=== PATIENT | female | born 1990 | race African-American/Black ===

== ENCOUNTER 2019-09-18 21:47 | Emergency (ER) | payer MEDICARE, MEDICAID ==
[2019-09-19] MEDS ORDERED: NORMAL SALINE 1000 ML 1,000 ML IV ONE (00:05)
[2019-09-19] MEDS ORDERED: ONDANSETRON HCL INJ/PF 4 MG/2 ML SDV IV ONE (00:06)
[2019-09-19] MEDS ORDERED: MORPHINE SULFATE 10 MG/ML INJ IV ONE (00:06)
--- NOTE | 2019-09-19 00:21 | ER Document Report ---
Entered by YORDY HAYS SCRIBE 09/19/19 0011 Acting as scribe for:BAYRON MCCORMICK IV, MD ED General - General Chief Complaint: Headache, Worst Ever Stated Complaint: HEADACHE Time Seen by Provider: 09/18/19 23:47 Primary Care Provider: MARY DUPONT MD [Primary Care Provider] - Follow up as needed Information source: Patient Notes: This 28-year-old female presents to the emergency department complaining of a headache that has been occurring for the past week. Patient states that headache is on the left side and she has never had a headache like this. Patient denies eye pain, nausea and vomiting. Patient states that headache is worsened with talking. Patient has been taking Tylenol with no relief. DDx: cluster headache, intracranial hemorrhage, subarachnoid hemorrhage and trigeminal neuralgia. TRAVEL OUTSIDE OF THE [place] IN LAST 30 DAYS: No - Related Data Allergies/Adverse Reactions: No Known Drug Allergies Allergy (Unknown, Verified 11/13/15 15:14) soap Allergy (Uncoded 11/13/15 15:14) Past Medical History - General Information source: Patient - Social History Smoking Status: Former Smoker Cigarette use (# per day): No Chew tobacco use (# tins/day): No Frequency of alcohol use: None Drug Abuse: None Family History: Reviewed & Not Pertinent Patient has suicidal ideation: No Patient has homicidal ideation: No Renal/ Medical History: Reports: Hx Ovarian Cysts Musculoskeletal Medical History: Denies Hx Arthritis Psychiatric Medical History: Reports: Hx Attention Deficit Hyperactivity Disorder, Hx Bipolar Disorder, Hx Schizophrenia Past Surgical History: Reports: Hx Gynecologic Surgery - ovarian cysts - Immunizations Hx Diphtheria, Pertussis, Tetanus Vaccination: No Review of Systems - Review of Systems Constitutional: No symptoms reported EENT: See HPI. denies: Eye pain Cardiovascular: No symptoms reported Respiratory: No symptoms reported Gastrointestinal: See HPI. denies: Nausea, Vomiting Genitourinary: No symptoms reported Female Genitourinary: No symptoms reported Musculoskeletal: No symptoms reported Skin: No symptoms reported Hematologic/Lymphatic: No symptoms reported Neurological/Psychological: See HPI, Headaches -: Yes All other systems reviewed and negative Physical Exam - Vital signs Vitals: Temp Pulse Resp BP Pulse Ox 98.2 F 91 22 H 142/101 H 97 09/18/19 22:01 09/18/19 22:01 09/18/19 22:01 09/18/19 22:01 09/18/19 22:01 - Notes Notes: Physical Exam: General: Alert, appears well. HEENT: Normocephalic. Atraumatic. PERRL. Extraocular movements intact. Oropharynx clear. Neck: Supple. Non-tender. Respiratory: No respiratory distress. Clear and equal breath sounds bilaterally. Cardiovascular: Regular rate and rhythm. Abdominal: Normal Inspection. Non-tender. No distension. Normal Bowel Sounds. Back: No gross abnormalities. Extremities: Moves all four extremities. Upper extremities: Normal inspection. Normal ROM. Lower extremities: Normal inspection. No edema. Normal ROM. Neurological: Normal cognition. AAOx4. Normal speech. Psychological: Normal affect. Normal Mood. Skin: Warm. Dry. Normal color. Course - Re-evaluation Re-evalutation: 09/19/19 03:08 Patient was woken from sleep. Patient states that her headache is improved. Results of ED MSE discussed with patient. All questions were answered prior to discharge. Emergency signs and symptoms, reasons to return to the emergency department discussed with patient. - Vital Signs Vital signs: Temp Pulse Resp BP Pulse Ox 97.9 F 69 20 129/87 H 98 09/19/19 02:46 09/19/19 02:46 09/19/19 02:46 09/19/19 02:46 09/19/19 02:46 - Diagnostic Test Radiology reviewed: Reports reviewed Discharge - Discharge Clinical Impression: Acute headache Qualifiers: Headache type: unspecified Intractability: not intractable Qualified Code(s): R51 - Headache Condition: Good Disposition: HOME, SELF-CARE Additional Instructions: Return to the Emergency Department without delay if any worse. HOME CARE INSTRUCTIONS & INFORMATION: Thank you for choosing us for your medical needs. We hope you're satisfied with the care you received. After you leave, you must properly care for your problem and, at the same time, observe its progress. Any condition can change. Some illnesses can change rapidly over hours or days. If your condition worsens, return to the Emergency Department or see your physician promptly. ABOUT YOUR X-RAYS AND EKG'S: If you had an EKG or X-rays taken, they have been read by the Emergency Physician. The X-rays and EKG's will also be read by a Radiologist or Steel Rule Die Maker within 24 hours. If discrepancies are noted, you will be notified by telephone. Please be certain the ED has a correct telephone number & address where you can be reached. Also, realize that some fractures or abnormalities do not show up on initial X-rays. If your symptoms continue, see your physician. ABOUT YOUR LABORATORY TEST: If you had laboratory tests, the results have been reviewed by the Emergency Physician. Some test results (for example cultures) may not be available for several days. You will be contacted if any test result shows you need additional treatment. Please be certain the ED has a correct telephone number and address where you can be reached. ABOUT YOUR MEDICATIONS: You will receive instructions on how to take your medicine on the prescription label you receive. Additional information may be provided by the Pharmacy. If you have questions afterwards, call the ED for clarification or further instructions. Some prescribed medications may cause drowsiness. Do not perform tasks such as driving a car or operating machinery without consulting your Pharmacist. If you feel you need a refill of pain medication, your condition will need re-evaluation. Please do not call for a refill of any medication. ABOUT YOUR SIGNATURE: Signature of this document acknowledges to followin. Understanding that you received emergency treatment and that you may be released before al medical problems are known or treated. Please be certain the ED has a correct phone number & address where you can be reached. 2. Acknowledgement that you will arrange for follow-up care as recommended. 3. Authorization for the Emergency Physician to provide information to your follow-up Physician in order to maximize your care. AT ANY TIME, IF YOUR SYMPTOMS CHANGE SIGNIFICANTLY OR WORSEN OR YOU DEVELOP NEW SYMPTOMS, RETURN TO THE EMERGENCY DEPARTMENT IMMEDIATELY FOR RE-EVALUATION. OUR GOAL IS TO PROVIDE EXCELLENT MEDICAL CARE! WE HOPE THAT WE HAVE MET YOUR EXPECTATIONS DURING YOUR EMERGENCY DEPARTMENT VISIT AND THAT YOU FEEL YOU HAVE RECEIVED EXCELLENT CARE! Headache The physician does not feel that the headache you are experiencing has a serious underlying cause. Most headaches are due to emotional stress, with resultant muscle tension (tension headache). Occasionally, headaches are secondary to changes in the blood vessels of the scalp (vascular headache and migraine headache). Sometimes, a headache is the first symptom of another developing illness, such as a viral infection. You have no evidence of stroke, bleeding, meningitis, or other serious cause of your headache. The treatment of headaches varies with the severity and cause of the pain. Not all headaches need pain shots. In fact, there is evidence that using narco tics for headaches may make them worse in the long run. The physician will determine the therapy that's in your best interest. If you develop a fever, if the headache is different from any you've previously experienced, or if the headache progressively worsens, then call your physician at once or go to the emergency room. Referrals: MARY DUPONT MD [Primary Care Provider] - Follow up as needed I personally performed the services described in the documentation, reviewed and edited the documentation which was dictated to the scribe in my presence, and it accurately records my words and actions.
--- NOTE | 2019-09-19 01:56 | RADIOLOGY REPORT (SQ) ---
EXAM DESCRIPTION: CT HEAD WITHOUT IV CONTRAST COMPLETED DATE/TME: 09/19/2019 00:07 CLINICAL HISTORY: 28 years Female, "worst headache of life" COMPARISON: None. TECHNIQUE: No contrast. Coronal and sagittal reformat. This exam was performed according to our departmental dose-optimization program, which includes automated exposure control, adjustment of the mA and/or kV according to patient size and/or use of iterative reconstruction technique. FINDINGS: No hemorrhage or infarct. No mass, mass effect, or midline shift. Brain and extra-axial structures appear intact. IMPRESSION: Normal CT of the head.
[2019-09-19 05:17] VITALS: BP 134/92
== END 2019-09-19 04:15 | disposition home or self-care (01) ==
LOC: ER 21:47
DX: R51 Headache (principal); Z88.8 Allergy status to other drugs, medicaments and biological substances; Z87.891 Personal history of nicotine dependence
CPT/HCPCS: 99284; 96361; 96374; 70450; J2270; J2405; J7030

== ENCOUNTER 2019-11-30 04:47 | Emergency (ER) | payer MEDICARE, MEDICAID ==
[2019-11-30 06:34] VITALS: BP 134/95
--- NOTE | 2019-11-30 06:34 | ER Document Report ---
Entered by AGUSTINA RICKS SCRIBE 11/30/19 0625 Acting as scribe for:CASEY PIKE MD ED Extremity Problem, Upper - General Chief Complaint: Arm Problem Stated Complaint: LEFT ARM PAIN Time Seen by Provider: 11/30/19 06:11 Primary Care Provider: MARY DUPONT MD [Primary Care Provider] - Follow up as needed TRAVEL OUTSIDE OF THE [place] IN LAST 30 DAYS: No - Related Data Allergies/Adverse Reactions: soap Allergy (Uncoded 11/30/19 04:54) Past Medical History - Social History Smoking Status: Former Smoker Frequency of alcohol use: None Drug Abuse: None Family History: Reviewed & Not Pertinent Patient has homicidal ideation: No - Past Medical History Cardiac Medical History: Denies: Hx Coronary Artery Disease, Hx Heart Attack, Hx Hypertension Pulmonary Medical History: Denies: Hx Asthma, Hx Bronchitis, Hx COPD, Hx Pneumonia Neurological Medical History: Denies: Hx Cerebrovascular Accident, Hx Seizures Endocrine Medical History: Denies: Hx Diabetes Mellitus Type 1, Hx Diabetes Mellitus Type 2 Renal/ Medical History: Reports: Hx Ovarian Cysts Musculoskeletal Medical History: Denies Hx Arthritis Psychiatric Medical History: Reports: Hx Attention Deficit Hyperactivity D isorder, Hx Bipolar Disorder, Hx Schizophrenia Past Surgical History: Reports: Hx Gynecologic Surgery - ovarian cysts - Immunizations Hx Diphtheria, Pertussis, Tetanus Vaccination: No Physical Exam - Vital signs Vitals: Temp Pulse Resp BP Pulse Ox 98.4 F 74 17 135/104 H 97 11/30/19 04:55 11/30/19 04:55 11/30/19 04:55 11/30/19 04:55 11/30/19 04:55 Course - Vital Signs Vital signs: Temp Pulse Resp BP Pulse Ox 98.4 F 74 17 135/104 H 97 11/30/19 04:55 11/30/19 04:55 11/30/19 04:55 11/30/19 04:55 11/30/19 04:55 11/30/19 06:33 Repeat blood pressure shows 134/95. Patient does not have a diagnosis of hypertension however patient should follow-up with her primary care physician regarding rechecks on her blood pressure and monitoring for hypertension. No medications indicated at this time. Discharge - Discharge Clinical Impression: Ecchymosis, Arm pain, left Condition: Stable Disposition: HOME, SELF-CARE Additional Instructions: There was extravasation of venous blood into the soft tissues in your left arm post donating plasma at the plasma center in your last visit. It will take time for that blood to be absorbed by your body in the area space of the blue color will increase over time according to gravity as well as according to how fast your body reabsorbs it there is no complication other than the discoloration of your of your arm. If there is pain Tylenol [id number] is recommended. Forms: Elevated Blood Pressure Referrals: MARY DUPONT MD [Primary Care Provider] - Follow up as needed I personally performed the services described in the documentation, reviewed and edited the documentation which was dictated to the scribe in my presence, and it accurately records my words and actions.
== END 2019-11-30 06:39 | disposition home or self-care (01) ==
LOC: ER 04:47
DX: M25.522 Pain in left elbow (principal); R58 Hemorrhage, not elsewhere classified; M79.10 Myalgia, unspecified site; Z87.891 Personal history of nicotine dependence; Z98.890 Other specified postprocedural states; Z91.048 Other nonmedicinal substance allergy status
CPT/HCPCS: 99283

== ENCOUNTER 2020-01-17 17:09 | Emergency (ER) | payer MEDICARE, MEDICAID ==
--- NOTE | 2020-01-17 17:37 | ER Document Report ---
HPI - HPI Time Seen by Provider: 01/17/20 17:27 Notes: 29-year-old female presents emergency room today for complaints of any pain that started last night. Denies any trauma. Reports that she has had a lump to the front of his or her knee for the last 8 months, has not had it checked out by a doctor. Reports took some Tylenol with relief. No prior knee issues. Patient is concerned that she may have cancer in her knee because someone told her that that is what it could be. No history of cancer. Patient states she does have arthritis that runs in her family. Denies fevers, chills, chest pain,palpitations, shortness of breath, dyspnea, nausea, vomiting, diarrhea, abdominal pain, hematuria,blurred vision, double vision, loss of vision, speech changes, LH, dizziness, syncope, headaches, wheezing, ST, URI, neck pain, weakness, bowel or bladder dysfunction, saddle anesthesia, numbness or tingling in bilateral upper or lower extremities equally, muscle paralysis, weakness in bilateral upper or lower extremities equally or rash. Denies IV drug use. MEDICATIONS: I agree with the patient medications as charted by the RN. ALLERGIES: I agree with the allergies as charted by the RN. PAST MEDICAL HISTORY/PAST SURGICAL HISTORY: Reviewed and agree as charted by RN. SOCIAL HISTORY: Reviewed and agree as charted by RN. FAMILY HISTORY: No significant familial comorbid conditions directly related to patient complaint EXAM: Reviewed vital signs as charted by RN. REVIEW OF SYSTEMS:reviewed vital signs by RN CONSTITUTIONAL : Denies fever, chills, or sweats. Denies recent illness. EENT: Denies eye, ear, throat, or mouth pain or symptoms. Denies nasal or sinus congestion or discharge. Denies throat, tongue, or mouth swelling or difficulty swallowing. CARDIOVASCULAR: Denies chest pain. Denies palpitations or racing or irregular heart beat. Denies ankle edema. RESPIRATORY: Denies cough, cold, or chest congestion. Denies shortness of breath, difficulty breathing, or wheezing. GASTROINTESTINAL: Denies abdominal pain or distention. Denies nausea, vomiting, or diarrhea. Denies blood in vomitus, stools, or per rectum. Denies black, tarry stools. Denies constipation. GENITOURINARY: Denies difficulty urinating, painful urination, burning, frequency, blood in urine, or discharge. FEMALE GENITOURINARY: Denies vaginal bleeding, heavy or abnormal periods, irregular periods. Denies vaginal discharge or odor. MUSCULOSKELETAL: Reports right knee pain. Denies back or neck pain or stiffness. Denies joint pain or swelling. SKIN: Denies rash, lesions or sores. HEMATOLOGIC : Denies easy bruising or bleeding. LYMPHATIC: Denies swollen, enlarged glands. NEUROLOGICAL: Denies confusion or altered mental status. Denies passing out or loss of consciousness. Denies dizziness or lightheadedness. Denies headache. Denies weakness or paralysis or loss of use of either side. Denies problems with gait or speech. Denies sensory loss, numbness, or tingling. Denies seizures. PSYCHIATRIC: Denies anxiety or stress. Denies depression, suicidal ideation, or homicidal ideation. ALL OTHER SYSTEMS REVIEWED AND NEGATIVE. PHYSICAL EXAMINATION: GENERAL: Well-appearing, well-nourished and in no acute distress. HEAD: Atraumatic, normocephalic. EYES: Pupils equal round and reactive to light, extraocular movements intact, conjunctiva are normal. ENT: Nares patent, oropharynx clear without exudates. Moist mucous membranes. NECK: Normal range of motion, supple without lymphadenopathy LUNGS: Breath sounds clear to auscultation bilaterally and equal. No wheezes rales or rhonchi. HEART: Regular rate and rhythm without murmurs ABDOMEN: Soft, nontender, nondistended abdomen. No guarding, no rebound. No masses appreciated. Female : deferred Musculoskeletal: Normal range of motion, no pitting or edema. No cyanosis. right knee pain with palpation to anterior aspect of knee with scant swelling. small negative christiano's sign. anterior and posterior drawer test negative. noted pain with extension. Dtr + 2 in BLE. Full motor and sensory function to BLE equally. No open wounds. No induration or drainage. Strength 5 out of 5 bilaterally equally. Ankle examination normal. Squeeze test negative. Hip examination normal. Pulses + 2 bilaterally and equally.negative squeeze bilaterally and equally. NEUROLOGICAL: Cranial nerves grossly intact. Normal speech, normal gait. Normal sensory, motor exams PSYCH: Normal mood, normal affect. SKIN: Warm, Dry, normal turgor, no rashes or lesions noted. Dictation was performed using [employer] recognition software - REPRODUCTIVE Reproductive: DENIES: : Past Medical History - General Information source: Patient - Social History Smoking Status: Unknown if Ever Smoked Family History: Reviewed & Not Pertinent - Past Medical History Cardiac Medical History: Denies: Hx Coronary Artery Disease, Hx Heart Attack, Hx Hypertension Pulmonary Medical History: Denies: Hx Asthma, Hx Bronchitis, Hx COPD, Hx Pneumonia Neurological Medical History: Denies: Hx Cerebrovascular Accident, Hx Seizures Endocrine Medical History: Denies: Hx Diabetes Mellitus Type 1, Hx Diabetes Mellitus Type 2 Renal/ Medical History: Reports: Hx Ovarian Cysts Musculoskeletal Medical History: Denies Hx Arthritis Psychiatric Medical History: Reports: Hx Attention Deficit Hyperactivity Disorder, Hx Bipolar Disorder, Hx Schizophrenia Past Surgical History: Reports: Hx Gynecologic Surgery - ovarian cysts - Immunizations Hx Diphtheria, Pertussis, Tetanus Vaccination: No Vertical Provider Document - CONSTITUTIONAL Agree With Documented VS: Yes Exam Limitations: No Limitations General Appearance: WD/WN - INFECTION CONTROL TRAVEL OUTSIDE OF THE [place] IN LAST 30 DAYS: No Course - Re-evaluation Re-evalutation: 01/17/20 17:34 afebrile, vitals stable no distress. Nurses notes reviewed. X-ray of right knee negative for any acute fractures dislocations or lesions noted. Discussed with patient that she will have to follow-up with her primary care provider for further evaluation of a small hard mass on her knee that has been present for the last 8 months. Likely this is a bone calcification. But does require further evaluation. Advised to alternating Tylenol and ibuprofen for pain control. After performing a Medical Screening Examination, I estimate there is LOW risk for OPEN FRACTURE, COMPARTMENT SYNDROME, DEEP VENOUS THROMBOSIS, ACUTE TENDON RUPTURE, or NEUROVASCULAR INJURY thus I consider the discharge disposition reasonable. I have reevaluated this patient multiple times and no significant life threatening changes are noted. The patient and I have discussed the diagnosis and risks, and we agree with discharging home to closely follow-up with their primary doctor or the referral orthopedist with the understanding hardeep t symptoms and presentations can change. We also discussed returning to the Emergency Department immediately if new or worsening symptoms occur. We have discussed the symptoms which are most concerning (e.g., changing or worsening pain, numbness, weakness) that necessitate immediate return - Vital Signs Vital signs: Temp Pulse Resp BP Pulse Ox 98.1 F 93 20 134/93 H 100 01/17/20 17:13 01/17/20 17:13 01/17/20 17:13 01/17/20 17:13 01/17/20 17:13 Discharge - Discharge Clinical Impression: Right knee pain, hard mass to right knee Condition: Stable Disposition: HOME, SELF-CARE Instructions: Use of Crutches ([facility]), Ice & Elevation ([facility]), Knee Immobilizing Splint ([facility]) Additional Instructions: Growth or Mass, Pending Workup During your evaluation, an abnormal growth or mass has been found. It will need further investigation. A ball of abnormal tissue is called a "mass." Not every mass is investigated in the same way. It depends on the size, the location, and whether there's more than one "lump." A mass might need additional x-rays, CT scan, or ultrasound. With some masses, we simply watch for signs that it's growing. Others require that we get a piece of the tissue for lab testing. We've done all the testing that we could do today. Be sure you understand what you're supposed to do as the next step. Most of the time, the mass will return agent to be benign (innocent). In that case, it would only require removal if it's causing serious symptoms. But because cancer is one possible cause of a newly-found mass, it's important that you follow through with the doctor's recommendations. If you develop new symptoms while waiting for the testing, call your doctor immediately. Your x-ray was negative for any acute findings such as fracture, dislocation or changes in bone lucency With primary care provider and commodity management specialist within the next 3 to 5 days. Alternate between Tylenol and ibuprofen for pain control, apply heat 20 minutes on 20 minutes off several times a day. Return immediately for any new or worsening symptoms. Follow up with primary care provider, call tomorrow to make followup appointment. Referrals: MARY DUPONT MD [Primary Care Provider] - Follow up as needed JEROMY VALDEZ MD [ACTIVE STAFF] - Follow up as needed
--- NOTE | 2020-01-17 18:06 | RADIOLOGY REPORT (SQ) ---
EXAM DESCRIPTION: KNEE RIGHT 4 VIEWS IMAGES COMPLETED DATE/TIME: 01/17/2020 4:44 pm REASON FOR STUDY: pain in R knee x2d, reports a small lump x3m COMPARISON: None. NUMBER OF VIEWS: Four views. TECHNIQUE: AP, lateral, and both oblique radiographic images acquired of the right knee. LIMITATIONS: None. FINDINGS: MINERALIZATION: Normal. BONES: No acute fracture or dislocation. No worrisome bone lesions. JOINT: No effusion. SOFT TISSUES: No soft tissue swelling. No radio-opaque foreign body. OTHER: No other significant finding. IMPRESSION: No radiographic abnormality of the right knee. TECHNICAL DOCUMENTATION: JOB ID: [id number] [employer]- All Rights Reserved Reading location - IP/workstation name: [email or web address]
[2020-01-17 19:17] VITALS: BP 123/63
== END 2020-01-17 18:54 | disposition home or self-care (01) ==
LOC: ER 17:09
DX: M25.561 Pain in right knee (principal); R22.41 Localized swelling, mass and lump, right lower limb
CPT/HCPCS: 99283

== ENCOUNTER 2020-05-31 14:37 | Emergency (ER) | payer MEDICARE, MEDICAID ==
--- NOTE | 2020-05-31 15:01 | ER Document Report ---
ED Medical Screen (RME) - General Chief Complaint: Chest Pain Stated Complaint: CHEST PAIN,HANDS TINGLING Time Seen by Provider: 05/31/20 14:58 Mode of Arrival: Wheelchair Information source: Patient Notes: 29-year-old female presents to ED for complaint of chest pain tightness with cramping to both hands tingling to both hands. She states she has not been able to fall asleep for more than 24 hours and now she is having chest pain with tingling to feet and hands. She states she is a former smoker does not drink or use any illegal drugs. She does have a history of ovarian cyst and bipolar. States she has not been able to eat anything today she has no appetite. I have greeted and performed a rapid initial assessment of this patient. A comprehensive ED assessment and evaluation of the patient, analysis of test results and completion of medical decision making process will be conducted by an additional ED providers. TRAVEL OUTSIDE OF THE [place] IN LAST 30 DAYS: No - Related Data Allergies/Adverse Reactions: No Known Allergies Allergy (Verified 01/17/20 17:31) Past Medical History - Past Medical History Cardiac Medical History: Denies: Hx Coronary Artery Disease, Hx Heart Attack, Hx Hypertension Pulmonary Medical History: Denies: Hx Asthma, Hx Bronchitis, Hx COPD, Hx Pneumonia Neurological Medical History: Denies: Hx Cerebrovascular Accident, Hx Seizures Endocrine Medical History: Denies: Hx Diabetes Mellitus Type 1, Hx Diabetes Mellitus Type 2 Renal/ Medical History: Reports: Hx Ovarian Cysts Musculoskeltal Medical History: Denies Hx Arthritis Psychiatric Medical History: Reports: Hx Attention Deficit Hyperactivity Disorder, Hx Bipolar Disorder, Hx Schizophrenia Past Surgical History: Reports: Hx Gynecologic Surgery - ovarian cysts - Immunizations Hx Diphtheria, Pertussis, Tetanus Vaccination: No Physical Exam - Vital signs Vitals: Temp Pulse Resp BP Pulse Ox 98.2 F 86 18 118/85 96 05/31/20 02:52 05/31/20 02:52 05/31/20 02:52 05/31/20 02:52 05/31/20 02:52 Course - Vital Signs Vital signs: Temp Pulse Resp BP Pulse Ox 98.2 F 86 18 118/85 96 05/31/20 02:52 05/31/20 02:52 05/31/20 02:52 05/31/20 02:52 05/31/20 02:52
[2020-05-31 15:23] LABS: ABSOLUTE MONOCYTES (AUTO) 0.2 10^3/uL (0.1-1.4); ABSOLUTE NEUT (AUTO) 2.7 10^3/uL (1.7-8.2); BASOPHILS % (AUTO) 0.9 % (0-2); EOSINOPHILS % (AUTO) 0.6 % (0-6); HEMATOCRIT 35.9 % (36.0-47.0); HEMOGLOBIN 11.9 g/dL (12.0-15.5); LYMPHOCYTES % (AUTO) 25.7 % (13-45); MEAN CORPUSCULAR HEMOGLOBIN 25.9 pg (27.0-33.4); MEAN CORPUSCULAR VOLUME 78 fl (80-97); MONOCYTES % (AUTO) 4.4 % (3-13); PLATELET COUNT 142 10^3/uL (150-450); RED BLOOD COUNT 4.58 10^6/uL (3.72-5.28); RED CELL DISTRIBUTION WIDTH 16.2 % (11.5-14.0); SEGMENTED NEUTROPHILS % (AUTO) 68.4 % (42-78); TOTAL CELLS COUNTED % (AUTO) 100 %
--- NOTE | 2020-05-31 15:36 | RADIOLOGY REPORT (SQ) ---
EXAM DESCRIPTION: CHEST 2 VIEWS IMAGES COMPLETED DATE/TIME: 05/31/2020 3:24 pm REASON FOR STUDY: Chest pain muscle spasms COMPARISON: None. EXAM PARAMETERS: NUMBER OF VIEWS: Two views. TECHNIQUE: PA and lateral views of the chest were obtained. RADIATION DOSE: NA LIMITATIONS: None. FINDINGS: LUNGS AND PLEURA: No consolidation, pleural effusion or pneumothorax. MEDIASTINUM AND HILAR STRUCTURES: No mediastinal or hilar contour abnormality. HEART AND VASCULAR STRUCTURES: The cardiac silhouette and pulmonary vasculature are within normal meneses its. BONES: No acute findings. HARDWARE: None in the chest. OTHER: No other finding. IMPRESSION: No acute cardiopulmonary process. TECHNICAL DOCUMENTATION: JOB ID: [id number] .[employer]- All Rights Reserved Reading location - IP/workstation name: [email or web address]
[2020-05-31 15:40] LABS: ALBUMIN 3.5 g/dL (3.5-5.0); ALKALINE PHOSPHATASE 62 U/L (38-126); ANION GAP 5 (5-19); ASPARTATE AMINO TRANSFERASE 21 U/L (14-36); BILIRUBIN,DIRECT 0.1 mg/dL (0.0-0.4); BILIRUBIN,TOTAL 0.5 mg/dL (0.2-1.3); BLOOD UREA NITROGEN 4 mg/dL (7-20); CALCIUM 9.1 mg/dL (8.4-10.2); CARBON DIOXIDE 24 mmol/L (22-30); CHLORIDE 108 mmol/L (98-107); CREATINE KINASE 78 U/L (30-135); GLUCOSE 99 mg/dL (75-110); POTASSIUM 3.8 mmol/L (3.6-5.0); TOTAL PROTEIN 6.5 g/dL (6.3-8.2)
[2020-05-31 17:21] VITALS: BP 118/81
--- NOTE | 2020-05-31 17:30 | EKG REPORT ---
SEVERITY:- NORMAL ECG - SINUS RHYTHM : Confirmed by: Travis Wood MD 31-May-2020 17:29:49
--- NOTE | 2020-05-31 18:13 | ER Document Report ---
ED General - General Chief Complaint: Chest Pain Stated Complaint: CHEST PAIN,HANDS TINGLING Time Seen by Provider: 05/31/20 14:58 Primary Care Provider: MANNY MEJIA MD [ACTIVE STAFF] - Follow up in 3-5 days Mode of Arrival: Wheelchair TRAVEL OUTSIDE OF THE [place] IN LAST 30 DAYS: No - HPI Notes: Patient is a 29-year-old female who presents with episode of chest pain and paresthesias that occurred today. Patient states she has been very anxious as her uncle is in a coma. She states she has been unable to sleep for the past 24 hours. She did take a nap for about an hour prior to arrival. She states she feels like she has tingling in her hands and her feet. She also feels anxious. Patient had an episode of chest pain that resolved in her midsternal chest. She denies any cough or cold symptoms. She states this has never happened to her before. She denies any shortness of breath. - Related Data Allergies/Adverse Reactions: No Known Allergies Allergy (Verified 01/17/20 17:31) Past Medical History - General Information source: Patient - Social History Smoking Status: Former Smoker Family History: Reviewed & Not Pertinent Patient has homicidal ideation: No - Past Medical History Cardiac Medical History: Denies: Hx Coronary Artery Disease, Hx Heart Attack, Hx Hypertension Pulmonary Medical History: Denies: Hx Asthma, Hx Bronchitis, Hx COPD, Hx Pneumonia Neurological Medical History: Denies: Hx Cerebrovascular Accident, Hx Seizures Endocrine Medical History: Denies: Hx Diabetes Mellitus Type 1, Hx Diabetes Mellitus Type 2 Renal/ Medical History: Reports: Hx Ovarian Cysts Musculoskeletal Medical History: Denies Hx Arthritis Psychiatric Medical History: Reports: Hx Attention Deficit Hyperactivity Disorder, Hx Bipolar Disorder, Hx Schizophrenia Past Surgical History: Reports: Hx Gynecologic Surgery - ovarian cysts - Immunizations Hx Diphtheria, Pertussis, Tetanus Vaccination: No Review of Systems - Review of Systems Notes: CONSTITUTIONAL: No fever, fatigue or weight loss. HENT: No congestion, ear pain, or sore throat. CARDIOVASCULAR: Episode of chest pain that resolved. RESPIRATORY: No cough, shortness of breath, congestion, or wheezing. GASTROINTESTINAL: No abdominal pain, nausea, vomiting GENITOURINARY: No dysuria. MUSCULOSKELETAL: No joint pain or swelling. NEUROLOGIC: No seizures. Bilateral paresthesia to hands. HEMATOLOGIC: No unusual bruising or bleeding. PSYCHIATRIC: No depression. Positive for anxiety. Physical Exam - Vital signs Vitals: Temp Pulse Resp BP Pulse Ox 98.2 F 86 18 118/85 96 05/31/20 02:52 05/31/20 02:52 05/31/20 02:52 05/31/20 02:52 05/31/20 02:52 - General General appearance: Appears well, Anxious Notes: VITAL SIGNS: Within normal limits. GENERAL: No acute distress, non-toxic appearance. HEAD: Normal with no signs of head trauma. EYES: Conjunctiva normal, no discharge. EARS: Hearing grossly intact. NOSE: Normal. NECK: Normal range of motion, no tenderness, supple, no lymphadenopathy, No adenopathy, no JVD. CHEST: Clear breath sounds bilaterally. No wheezes, rales, or rhonchi. CARDIAC: Regular rate and rhythm. S1 and S2, without murmurs, gallops, or rubs. VASCULAR: No Edema. ABDOMEN: Normal and soft with no tenderness, no masses or pulsatile masses. MUSCULOSKELETAL: Good range of motion of all major joints. Extremities without clubbing, cyanosis or edema. NEUROLOGICAL: Alert and oriented x 3. No focal sensory or strength deficits. Speech normal. Follows commands appropriately. PSYCHIATRIC: Normal Affect, judgement and mood. SKIN: Normal appearance with no rashes or lesions. Course - Re-evaluation Re-evalutation: 05/31/20 19:08 Nursing staff told me that patient would like to be discharged as she has to catch the bus prior to my evaluation. I immediately went to evaluate her. Patient appears well on exam. She does seem somewhat anxious. Patient denies any sensory changes currently. She has no chest pain currently. Patient was told about her normal work-up. Her EKG and troponin were normal. Chest x-ray was normal. I believe that a PE is unlikely as she has no risk factors. She is currently denying symptoms. I did discuss with her good sleeping habits. I also instructed her to drink water and stay hydrated. I also instructed her on eating regular meals. She was given a PCP to follow-up with. Patient was given strict return precautions. - Vital Signs Vital signs: Temp Pulse Resp BP Pulse Ox 98.7 F 70 16 118/81 100 05/31/20 17:20 05/31/20 17:20 05/31/20 17:20 05/31/20 17:20 05/31/20 17:20 - Laboratory Results Result Diagrams: 05/31/20 15:14 05/31/20 15:14 Laboratory Results Interpreted: 05/31/20 05/31/20 15:14 15:14 Hgb 11.9 L Hct 35.9 L MCV 78 L MCH 25.9 L RDW 16.2 H Plt Count 142 L Sodium 136.7 L Chloride 108 H BUN 4 L Critical Laboratory Results Reviewed: No Critical Results - Radiology Results Critical Radiology Results Reviewed: No Critical Results - EKG Interpretation by Me EKG shows normal: Sinus rhythm Rate: Normal Rhythm: NSR When compared to previous EKG there are: No significant change Additional EKG results interpreted by me: 05/31/20 19:08 Sinus rhythm at a rate of 85. QTc 433. No acute ST changes. EKG is similar to previous. Discharge - Discharge Clinical Impression: Paresthesia of hand, bilateral Chest pain Qualifiers: Chest pain type: unspecified Qualified Code(s): R07.9 - Chest pain, unspecified Condition: Stable Disposition: HOME, SELF-CARE Instructions: Chest Pain of Unclear Cause ([facility]) Additional Instructions: Your work-up is reassuring. Your cardiac work-up was normal. Please follow-up with the PCP provided. Please make sure you are staying hydrated, avoiding stressors, eating regular meals. Return to the ER immediately for any return of symptoms. Referrals: MANNY MEJIA MD [ACTIVE STAFF] - Follow up in 3-5 days
== END 2020-05-31 18:10 | disposition home or self-care (01) ==
LOC: ER 14:37
DX: R07.9 Chest pain, unspecified (principal); R20.2 Paresthesia of skin; F41.9 Anxiety disorder, unspecified
CPT/HCPCS: 36415; 71046; 80053; 82550; 83735; 84100; 84484; 85025; 93005; 93010; 99285